=== PATIENT | male | born 1995 | race Two or more races ===

== ENCOUNTER 2017-02-20 00:02 | Emergency (ER) | payer SELFPAY ==
[~2017-02-20] VITALS: Ht 160 cm; Wt 68.0 kg
[2017-02-20] MEDS ORDERED: NKM (00:24)
[2017-02-20 02:25] VITALS: BP 128/88
--- NOTE | 2017-02-20 02:25 | Emergency Room Report ---
History of Present Illness General Chief Complaint: Palpitations Source: Patient Present Illness HPI Is a 22-year-old male with a history palpitation. He said he usually get was or twice a month lasting anywhere from one to 2 minutes. He came in today complaining of palpitation was working. He said he felt lightheaded and weakness his leg. He was concerned so he came in here. Symptom resolved already. Never seen a javascript software engineer. Never had any other workup. Allergies: Coded Allergies: No Known Allergies (Unverified , 02/20/17) Patient History Past Medical History: see triage record, old chart reviewed Past Surgical History: none Pertinent Family History: none Social History: Denies: smoking Immunizations: other Reviewed Nursing Documentation: PMH: Agreed, PSxH: Agreed Nursing Documentation-PMH Past Medical History: No Stated History Review of Systems Eye: Denies: eye pain, blurred vision ENT: Denies: ear pain, nose congestion, throat swelling Respiratory: Denies: cough, shortness of breath Cardiovascular: Reports: palpitations, Denies: chest pain Gastrointestinal: Denies: abdominal pain, diarrhea, nausea, vomiting Musculoskeletal: Denies: back pain, joint pain Skin: Denies: rash Neurological: Denies: headache, numbness Endocrine: Denies: increased thirst, increased urine Hematologic/Lymphatic: Denies: easy bruising All Other Systems: negative except mentioned in HPI Physical Exam Vital Signs Date Time Temp Pulse Resp B/P (MAP) Pulse Ox O2 Delivery O2 Flow Rate FiO2 02/20/17 00:18 98.1 60 18 98 Room Air vitals normal Sp02 EP Interpretation: reviewed, normal General Appearance: well appearing, no apparent distress, alert Head: normocephalic, atraumatic Eyes: bilateral eye PERRL, bilateral eye EOMI ENT: hearing grossly normal, normal pharynx Neck: full range of motion, supple, no meningismus Respiratory: chest non-tender, lungs clear, normal breath sounds Cardiovascular #1: regular rate, rhythm, no murmur Gastrointestinal: normal bowel sounds, non tender, no mass, no organomegaly, no bruit, non-distended Musculoskeletal: back normal, gait/station normal, normal range of motion Psychiatric: mood/affect normal Skin: warm/dry Medical Decision Making Diagnostic Impression: Primary Impression: Palpitations ER Course Patient presents with palpitation. Differential include SVT, A. fib, other arrhythmia to name a few. He will need to see a javascript software engineer for Holter monitor EKG Diagnostic Results Rate: normal Rhythm: NSR ST Segments: no acute changes Rhythm Strip Diag. Results Rhythm Strip Time: 02:24 EP Interpretation: yes Rate: 55 Rhythm: NSR, no PVC's, no ectopy Last Vital Signs Date Time Temp Pulse Resp B/P (MAP) Pulse Ox O2 Delivery O2 Flow Rate FiO2 02/20/17 00:18 98.1 60 18 98 Room Air Status: improved Disposition: HOME, SELF-CARE Condition: Stable Patient Instructions: Palpitations Additional Instructions: Followup your DrSandeep in 7 days. He will be referred to see a javascript software engineer for a Holter monitor. Return if worse. BLANKA SANDOVAL M.D. Feb 20, 2017 02:25
--- NOTE | 2017-03-01 16:11 | Cardiology Report ---
APPROVED REPORT EKG Measurement Heart [id number] elevation, consider early repolarization, pericarditis, or injury Abnormal ECG
== END 2017-02-20 02:45 | disposition home or self-care (01) ==
LOC: EMR 02:34
DX: R00.2 Palpitations (principal)
CPT/HCPCS: 93005; 99283